=== PATIENT | female | born 1990 | race Caucasian/White ===

== ENCOUNTER 2018-08-10 19:15 | Emergency (ER) | payer OTHER, SELFPAY ==
[2018-08-10 19:17] VITALS: BP 116/70; PULSE 139; RESP 18; TEMP 37; O2SAT 94; BMI 35.5
[2018-08-10 19:57] LABS: Red Blood Cells-Urine 0 SEEN /hpf (0-5)
[2018-08-10 20:02] LABS: Absolute Neutrophil Count 8.8 X10^3/uL (2.0-7.7); Basophil# 0.01 X10^3/uL; Basophil% 0.1 % (0-1); Color, Urine Amber (Yellow); Eosinophil# 0.01 X10^3/uL; Eosinophils% 0.1 % (0-5); Glucose, Dipstick Normal (Normal); Hematocrit 35.2 % (37-47); Hemoglobin 12.5 g/dl (12.0-15.0); Leukocyte Esterase-Dipstick 100 /ul (Negative); Lymphocyte % 11.5 % (19-41); Mean Corp Hgb Conc 35.5 g/gl (32-36); Mean Corpuscular Hgb 30.6 pg (27.0-32.0); Mean Corpuscular Volume 86.3 fL (81-99); Mean Platelet Vol. 10.6 fl (6.2-12.0); Monocyte# 0.42 X10^3/uL; Neutrophil # 8.77 X10^3/uL (2.7-7.7); Neutrophil % 84.1 % (47-70); Nitrite-Dipstick Negative (Negative); Occult Blood-Urine Negative /ul (Negative); Platelet Count 213 K/mm3 (150-450); Protein-Dipstick 30 mg/dl (Negative); RBC Distribution Width CV 13.7 % (11.6-14.6); Red Blood Count 4.08 M/mm3 (4.2-5.4); Urine Clarity Cloudy (Clear); Urine Urobilinogen 4 mg/dl (Normal); White Blood Count 10.4 K/mm3 (4.4-11.0)
[2018-08-10 20:04] LABS: Urine Bilirubin Dipstick 1 mg/dL (Negative)
[2018-08-10 20:05] LABS: Ketone-Dipstick 150 mg/dl (Negative); POSITIVE COUNT NO; POSITIVE DIFFERENTIAL NO; POSITIVE MORPHOLOGY NO
[2018-08-10] MEDS: 0.9% Normal Saline 1,000 ML 1000 ML IV ×2 (20:09→21:08)
[2018-08-10] MEDS: Ondansetron 4 MG/2 ML Vial IV (20:09)
[2018-08-10 20:10] LABS: Bacteria 1+ /hpf (None Seen); Mucous, Urine RARE /hpf (<or=2+); Squamous Epithelial Cells - UA 10-25 SEEN /hpf (5-10); White Blood Cells 0-5 SEEN /hpf (0-5)
[2018-08-10 20:23] LABS: Anion Gap 11 (5-15); BUN 10 mg/dL (7-18); BUN/Creat Ratio 16.4 RATIO (10-20); Calcium,Total 8.3 mg/dL (8.5-10.1); Chloride 106 mmol/L (98-107); Creatinine, Serum 0.61 mg/dL (0.55-1.02); EST Glomerular Filtration Rate 123 mL/min (>60); Est Glom Filt Rate - Afr Amer 149 mL/min (>60); Estimated Creatinine Clearance 122.45 ml/min; Glucose 89 mg/dL (74-106); Potassium 3.5 mmol/L (3.5-5.1); Sodium Level 138 mmol/L (136-145)
--- NOTE | 2018-08-10 20:51 | ED.DCSUM_ITS ---
- ER Visit Summary Date of Service: 08/10/18 Chief Complaint: Vomiting History of Present Illness: The patient is a 28 F presenting with vomiting. States that this started today. She is 24 weeks states she has been vomiting throughout her . She had several episodes of forceful vomiting today. She had an episode where she had streaks of blood at the end of the emesis. She denies pelvic or abdominal pain. Denies vaginal bleeding. She has had diarrhea with no blood in her stool. She is . She follows with [facility] in [place]. She denies fever or other complaints. Physical Examination: Vitals are stable. Patient is afebrile. HR 139. Alert no acute distress. HEENT exam is unremarkable. Neck is supple. Lungs are clear and equal bilaterally. Heart is regular and tachycardic Abdomen is soft nontender nondistended. Gravid Extremities are unremarkable. Skin is warm and dry. Remainder of exam is unremarkable. Emergency Department Course and Treatment: Patient given IV fluids, Zofran. She continues to be nauseated and was given Phenergan. She was given a GI cocktail. CBC, chemistries unremarkable. Urinalysis shows ketones, 0-5 white blood cells. She is feeling improved following fluids. Repeat heart rate is 100. She is able to tolerate p.o. She had no further vomiting in the ED. heart tones 150. She is given a prescription for Zofran. She is advised to follow up with her [employer] tomorrow. Advised return to ED if worsening complaints. Disposition: Discharge home Impression: Vomiting, diarrhea; This note was generated with [employer] dictation software. It may contain incorrect words, spelling, and punctuation that were not noted in review of the chart prior to signing ED Disposition - Plan for ED Patient: Chief Complaint: GI Bleed Instructions: ED Diet Vomiting Diarrhea Prescriptions: Ondansetron [Zofran Odt] 4 mg PO Q8H PRN PRN #10 tablet PRN Reason: Nausea Referrals: Krystin Gibbs MD [Primary Care Provider] -
[2018-08-10 21:16] VITALS: BP 119/67; PULSE 112; RESP 16; O2SAT 100
[2018-08-10] MEDS: proMETHazine 25 MG/ML Syringe 6.25 MG IV (21:43)
[2018-08-10] MEDS: Mag Hydrox/Al Hydrox/Simeth 30 ML UDC PO (21:46)
--- NOTE | 2018-08-10 22:33 | ED.DEP ---
ED Disposition - Plan for ED Patient: Chief Complaint: GI Bleed Instructions: ED Diet Vomiting Diarrhea Prescriptions: Ondansetron [Zofran Odt] 4 mg PO Q8H PRN PRN #10 tablet PRN Reason: Nausea Referrals: Krystin Gibbs MD [Primary Care Provider] -
== END 2018-08-10 22:51 | disposition home or self-care (01) ==
LOC: ED 19:53
PROVIDERS: Emergency Provider Emergency Medicine; Family Provider Family Medicine; PCP Family Medicine
DX: O26.892 Other specified pregnancy related conditions, second trimester (principal); R11.2 Nausea with vomiting, unspecified; R19.7 Diarrhea, unspecified; O99.612 Diseases of the digestive system complicating pregnancy, second trimester; K21.9 Gastro-esophageal reflux disease without esophagitis; Z3A.24 24 weeks gestation of pregnancy
CPT/HCPCS: 80048; 81001; 85025; 96361; 96374; 96375; 99283; J7030; A4216; J2405